=== PATIENT | female | born 1970 | race African-American/Black ===

== ENCOUNTER 2017-11-15 11:52 | Emergency (ER) | payer MEDICAID ==
[~2017-11-15] VITALS: Ht 154.9 cm; Wt 56.8 kg
[2017-11-15 12:04] VITALS: BP 102/72
== END 2017-11-15 16:47 | disposition left against medical advice (07) ==
LOC: ER 11:52
DX: R30.0 Dysuria (principal); Z53.21 Procedure and treatment not carried out due to patient leaving prior to being seen by health care provider